=== PATIENT | female | born 1985 | race Caucasian/White ===

== ENCOUNTER 2016-11-29 13:45 | Emergency (ER) | payer SELFPAY ==
[~2016-11-29] VITALS: Ht 157.5 cm; Wt 58.2 kg
[2016-11-29 16:29] LABS: POINT-OF-CARE METER ID UU13113800
[2016-11-29] MEDS ORDERED: PREDNISONE10 MG PO (17:16)
[2016-11-29 17:42] VITALS: BP 115/75
== END 2016-11-29 17:43 | disposition home or self-care (01) ==
LOC: EME 13:45
PROVIDERS: Physician Assistant
DX: G62.9 Polyneuropathy, unspecified (principal); F17.200 Nicotine dependence, unspecified, uncomplicated
CPT/HCPCS: 72100; 82948; 99281; 99283; J1885

== ENCOUNTER → 2017-07-14 | Outpatient (CLI) | payer BC ==
[~2017-07-14] VITALS: Ht 157.5 cm; Wt 60.8 kg
[~2017-07-14] MED LIST: GABAPENTIN300 MG PO; Gabapentin PO; LEVOTHYROXINE25 MCG PO; PREDNISONE10 MG PO; PRENATAL TABLE1 EAC3 PO; TRAMADOL HCL50 MG PO; VIBERZI75 MG PO
== END | disposition home or self-care (01) ==
LOC: AMB 09:57
DX: R19.7 Diarrhea, unspecified (principal); K64.8 Other hemorrhoids; R76.8 Other specified abnormal immunological findings in serum; R79.89 Other specified abnormal findings of blood chemistry; E03.9 Hypothyroidism, unspecified; F17.200 Nicotine dependence, unspecified, uncomplicated; Z80.49 Family history of malignant neoplasm of other genital organs; Z83.3 Family history of diabetes mellitus
CPT/HCPCS: 88305; 88313